=== PATIENT | male | born 1950 | race Caucasian/White ===

== ENCOUNTER → 2016-07-01 | Outpatient (CLI) | payer MEDICARE, OTHER ==
[~2016-07-01] MED LIST: ADULT LOW DOSE81 M1 PO; ALBUTEROL17 GM IH; ALEVE220 M2 PO; COZAAR50 MG PO; FLEXERIL10 MG PO; LOSARTAN-HCTZ1 EAC1 PO; MICRO-K10 ME2 PO; PREDNISONE1 MG PO; SERTRALINE HCL100 MG PO; TAMSULOSIN HCL0.4 MG PO; TYLENOL ARTHRI650 M2 PO; ULTRAM50 MG PO; VENTOLIN HFA18 GM IH; VESICARE5 MG PO
== END | disposition home or self-care (01) ==
LOC: CDC 14:28
DX: I45.10 Unspecified right bundle-branch block (principal)
CPT/HCPCS: 93000